=== PATIENT | female | born 1995 | race African-American/Black ===

== ENCOUNTER 2017-11-26 17:56 | Emergency (ER) | payer OTHER ==
[~2017-11-26] VITALS: Ht 172.7 cm; Wt 81.6 kg
[2017-11-26] MEDS ORDERED: NS IV 1000 ML 1,000 ML IV ONE (18:15)
[2017-11-26] MEDS ORDERED: ONDANSETRON 4 MG/2 ML (SDV) Z0FRAN IVP ONE (18:15)
[2017-11-26 18:25] LABS: BILIRUBIN,URINE NEGATIVE (NEGATIVE); CLARITY,URINE CLEAR; COLOR,URINE YELLOW; GLUCOSE, URINE (UA) NEGATIVE (NEGATIVE); KETONES,URINE 4+ (NEGATIVE); LEUKOCYTE ESTERASE ,URINE 1+ (NEGATIVE); NITRITE,URINE NEGATIVE (NEGATIVE); PH,URINE 6.5 (5-9); PROTEIN,URINE 2+ (NEGATIVE); UROBILINOGEN,URINE 4 MG/DL (NORMAL)
[2017-11-26 18:26] LABS: BASOPHILS % (AUTO) 0 % (0-10); EOSINOPHILS % (AUTO) 0 % (0-10); HEMATOCRIT 38 % (35-52); HEMOGLOBIN 12.5 G/DL (11.5-16.0); LYMPHOCYTES # (AUTO) 1.1 X 10^3 (1.0-4.0); LYMPHOCYTES % (AUTO) 10 % (12-44); MEAN CORPUSCULAR HEMOGLOBIN 29 PG (25-34); MEAN CORPUSCULAR HGB CONC 33 G/DL (32-36); MEAN CORPUSCULAR VOLUME 87 FL (80-99); MEAN PLATELET VOLUME 9.5 FL (7.4-10.4); MONOCYTES # (AUTO) 0.9 X 10^3 (0.0-1.0); MONOCYTES % (AUTO) 8 % (0-12); NEUTROPHILS # (AUTO) 8.7 X 10^3 (1.8-7.8); NEUTROPHILS % (AUTO) 82 % (42-75); PLATELET COUNT 255 10^3/uL (130-400); RED BLOOD COUNT 4.34 10^6/uL (4.35-5.85); RED CELL DISTRIBUTION WIDTH 13.5 % (10.0-14.5); WHITE BLOOD COUNT 10.7 10^3/uL (4.3-11.0)
--- NOTE | 2017-11-26 18:28 | ED GI ---
General Chief Complaint: Abdominal/GI Problems Stated Complaint: VOMITING/DIARRHEA/STOMACH AND HEAD PAIN Nursing Triage Note: c/o lower abd diarrhea and vomiting since last night. Sepsis Screen: No Definite Risk Source of Information: Patient Exam Limitations: No Limitations History of Present Illness Date Seen by Provider: Nov 26, 2017 Time Seen by Provider: 18:15 Initial Comments This 22-year-old young lady presents to the emergency room with complaints of nausea, vomiting, diarrhea, abdominal cramping, and fever that started around 03 :00. Her last intake of solid foods was at 20:00. She has had water and Sprite today with her last drink being around 17:00. She denies as her LMP was last week. She has not taken any Tylenol or ibuprofen. She is still febrile at present. Allergies and Home Medications Allergies Coded Allergies: No Known Drug Allergies (Unverified , 11/26/17) Home Medications Cephalexin 500 Mg Capsule, 500 MG PO BID Prescribed by: REMI LALA on 11/26/171944 Hyoscyamine Sulfate 0.125 Mg Tab.subl, 0.125 MG SL Q4H PRN for NAUSEA/VOMITING Prescribed by: REMI LALA on 11/26/171944 Ondansetron 4 Mg Tab.rapdis, 4 MG SL Q4H PRN for NAUSEA/VOMITING-1ST LINE Prescribed by: REMI LALA on 11/26/171944 Patient Home Medication List Home Medication List Reviewed: Yes Review of Systems Review of Systems Constitutional: see HPI EENTM: No Symptoms Reported Respiratory: No Symptoms Reported Cardiovascular: No Symptoms Reported Gastrointestinal: See HPI Genitourinary: No Symptoms Reported Musculoskeletal: no symptoms reported Skin: no symptoms reported Psychiatric/Neurological: No Symptoms Reported Endocrine: No Symptoms Reported Hematologic/Lymphatic: No Symptoms Reported Past Czueubz-Jszpdx-Krevlg Hx Past Med/Social Hx: Reviewed and Corrections made Patient Social History Alcohol Use: Denies Use Recreational Drug Use: No Smoking Status: Current Everyday Smoker Type Used: Cigarettes Recent Foreign Travel: No Contact w/Someone Who Travel: No Recent Infectious Disease Expo: No Recent Hopitalizations: No Physical Abuse: No Sexual Abuse: No Mistreated: No Fear: No Immunizations Up To Date PED Vaccines UTD: Yes Seasonal Allergies Seasonal Allergies: No Past Medical History Surgeries: Yes Orthopedic (anterior cruciate ligament repairs) Respiratory: No Cardiac: No Neurological: No : No Last Menstrual Period: Nov 19, 2017 Reproductive Disorders: No Genitourinary: No Gastrointestinal: No Musculoskeletal: No Endocrine: No HEENT: No Cancer: No Psychosocial: No Integumentary: No Physical Exam Vital Signs Vital Signs - First Documented 11/26/17 18:14 Temp 100.4 Pulse 110 Resp 16 B/P (MAP) 128/74 (92) Pulse Ox 98 Capillary Refill : Less Than 3 Seconds Height/Weight/BMI Height: 5'8.00" Weight: 180lbs. oz. 81.124931gt; BMI Method:Stated General Appearance: WD/WN, no apparent distress, other (somewhat ill-appearing) HEENT: PERRL/EOMI, normal ENT inspection, pharynx normal Neck: normal inspection Respiratory: lungs clear, normal breath sounds, no respiratory distress, no accessory muscle use Cardiovascular: regular rate, rhythm, no edema, no murmur Gastrointestinal: normal bowel sounds, soft; No distended; tenderness (mild generalized tenderness) Extremities: normal inspection, no pedal edema Neurologic/Psychiatric: payment processor II-XII nml as tested, no motor/sensory deficits, alert, normal mood/affect, oriented x 3 Skin: normal color, warm/dry Progress/Results/Core Measures Results/Orders Lab Results Laboratory Tests Test 11/26/17 17:58 11/26/17 18:00 11/26/17 18:10 Range/Units Lab Scanned Report Referred Lab Report [id number] Urine Color YELLOW Urine Clarity CLEAR Urine pH 6.5 5-9 Urine Specific [place] 1.015 L 1.016-1.022 Urine Protein 2+ H NEGATIVE Urine Glucose (UA) NEGATIVE NEGATIVE Urine Ketones 4+ H NEGATIVE Urine Nitrite NEGATIVE NEGATIVE Urine Bilirubin NEGATIVE NEGATIVE Urine Urobilinogen 4 H NORMAL MG/DL Urine Leukocyte Esterase 1+ H NEGATIVE Urine RBC (Auto) 1+ H NEGATIVE Urine RBC 5-10 H /HPF Urine WBC 5-10 H /HPF Urine Squamous Epithelial Cells 5-10 /HPF Urine Crystals NONE /LPF Urine Bacteria FEW H /HPF Urine Casts NONE /LPF Urine Mucus LARGE H /LPF Urine Culture Indicated YES White Blood Count 10.7 4.3-11.0 10^3/uL Red Blood Count 4.34 L 4.35-5.85 10^6/uL Hemoglobin 12.5 11.5-16.0 G/DL Hematocrit 38 35-52 % Mean Corpuscular Volume 87 80-99 FL Mean Corpuscular Hemoglobin 29 25-34 PG Mean Corpuscular Hemoglobin Concent 33 32-36 G/DL Red Cell Distribution Width 13.5 10.0-14.5 % Platelet Count 255 130-400 10^3/uL Mean Platelet Volume 9.5 7.4-10.4 FL Neutrophils (%) (Auto) 82 H 42-75 % Lymphocytes (%) (Auto) 10 L 12-44 % Monocytes (%) (Auto) 8 0-12 % Eosinophils (%) (Auto) 0 0-10 % Basophils (%) (Auto) 0 0-10 % Neutrophils # (Auto) 8.7 H 1.8-7.8 X 10^3 Lymphocytes # (Auto) 1.1 1.0-4.0 X 10^3 Monocytes # (Auto) 0.9 0.0-1.0 X 10^3 Eosinophils # (Auto) 0.0 0.0-0.3 10^3/uL Basophils # (Auto) 0.0 0.0-0.1 10^3/uL Sodium Level 136 135-145 MMOL/L Potassium Level 3.5 L 3.6-5.0 MMOL/L Chloride Level 103 98-107 MMOL/L Carbon Dioxide Level 20 L 21-32 MMOL/L Anion Gap 13 5-14 MMOL/L Blood Urea Nitrogen 13 7-18 MG/DL Creatinine 0.84 0.60-1.30 MG/DL Estimat Glomerular Filtration Rate > 60 BUN/Creatinine Ratio 15 Glucose Level 125 H 70-105 MG/DL Calcium Level 9.2 8.5-10.1 MG/DL Corrected Calcium 8.9 8.5-10.1 MG/DL Magnesium Level 2.1 1.8-2.4 MG/DL Total Bilirubin 0.7 0.1-1.0 MG/DL Aspartate Amino Transf (AST/SGOT) 15 5-34 U/L Alanine Aminotransferase (ALT/SGPT) 12 0-55 U/L Alkaline Phosphatase 58 40-136 U/L Total Protein 7.7 6.4-8.2 GM/DL Albumin 4.4 3.2-4.5 GM/DL Serum Test, Qualitative NEGATIVE NEGATIVE Micro Results Microbiology 11/26/17 Urine Culture - Final, Complete See Comments My Orders Orders - REMI CHAMORRO MD Ondansetron Injection (Zofran Injectio (11/26/17 18:15) Saline Lock/Iv-Start (11/26/17 18:15) Ns Iv 1000 Ml (Sodium Chloride 0.9%) (11/26/17 18:15) Cbc With Automated Diff (11/26/17 18:16) Comprehensive Metabolic Panel (11/26/17 18:16) Hcg,Qualitative Serum (11/26/17 18:16) Magnesium (11/26/17 18:16) Ua Culture If Indicated (11/26/17 18:16) Hyoscyamine Sl Tablet (Levsin Sl Tablet) (11/26/17 18:30) Urine Culture (11/26/17 18:00) Lactated Ringers (Lr 1000 Ml Iv Solution (11/26/17 18:50) Ceftriaxone For Iv Use (Rocephin For I (11/26/17 19:00) Medications Given in ED Vital Signs/I&O 11/26/17 11/26/17 18:14 19:58 Temp 100.4 98.3 Pulse 110 83 Resp 16 16 B/P (MAP) 128/74 (92) 122/81 (95) Pulse Ox 98 99 Blood Pressure Mean: 92 Urine -Bedside: Negative Progress Progress Note #1: Time: 18:28 Progress Note Patient was seen and examined. IV fluids, Zofran, and Levsin have been ordered. Labs are pending. Progress Note #2: Progress Note Patient had suggestion of significant hypovolemia by urinalysis. After the first liter of IV fluid a second liter (LR) was given. Patient still had some cramping after treatment of pain. Levsin was administered. UA was suggestive of urinary tract infection. A gram of Rocephin was given. Departure Impression Primary Impression: Nausea vomiting and diarrhea Additional Impressions: Generalized abdominal cramping Urinary tract infection Qualified Codes: N39.0 - Urinary tract infection, site not specified Disposition: 01 HOME, SELF-CARE Condition: Improved Departure-Patient Inst. Decision time for Depature: 19:38 Referrals: NO,LOCAL PHYSICIAN (PCP/Family) Primary Care Physician Patient Instructions: Acute Abdomen (Belly Pain), Adult (DC), Urinary Tract Infection, Adult (DC), Viral Gastroenteritis Add. Discharge Instructions: Drink only clear liquids through the remainder of the evening. Tomorrow start with a clear liquid breakfast and advance diet with small quantities of bland food as tolerated. Use your medications as prescribed to manage symptoms. You may use Tylenol (acetaminophen) up to 1000 mg every 6 hours as needed for discomfort or fever. Return to care if symptoms are worsening despite these measures. All discharge instructions reviewed with patient and/or family. Voiced understanding. Scripts Cephalexin (Keflex) 500 Mg Capsule 500 MG PO BID, #10 CAP Prov: REMI CHAMORRO MD 11/26/17 Hyoscyamine Sulfate (Levsin-Sl) 0.125 Mg Tab.subl 0.125 MG SL Q4H PRN for NAUSEA/VOMITING, #10 TAB Prov: REMI CHAMORRO MD 11/26/17 Ondansetron (Zofran Odt) 4 Mg Tab.rapdis 4 MG SL Q4H PRN for NAUSEA/VOMITING-1ST LINE, #10 TAB Prov: REMI CHAMORRO MD 11/26/17 REMI CHAMORRO MD Nov 26, 2017 18:28
[2017-11-26] MEDS ORDERED: HYOSCYAMINE 0.125 MG (LEVSIN) TAB SL ONE (18:30)
[2017-11-26 18:34] LABS: BACTERIA,URINE FEW /HPF
[2017-11-26 18:41] LABS: ALANINE AMINOTRANSFERASE 12 U/L (0-55); ALBUMIN 4.4 GM/DL (3.2-4.5); ALKALINE PHOSPHATASE 58 U/L (40-136); BILIRUBIN,TOTAL 0.7 MG/DL (0.1-1.0); BUN/CREATININE RATIO 15; CALCIUM 9.2 MG/DL (8.5-10.1); CARBON DIOXIDE 20 MMOL/L (21-32); CHLORIDE 103 MMOL/L (98-107); CREATININE SERUM 0.84 MG/DL (0.60-1.30); GFR ESTIMATED > 60; GLUCOSE 125 MG/DL (70-105); MAGNESIUM 2.1 MG/DL (1.8-2.4); POTASSIUM 3.5 MMOL/L (3.6-5.0); SODIUM 136 MMOL/L (135-145); TOTAL PROTEIN 7.7 GM/DL (6.4-8.2)
[2017-11-26] MEDS ORDERED: LACTATED RINGERS 1,000 ML IV ONE (18:50)
[2017-11-26] MEDS ORDERED: cefTRIAXone FOR IV USE 1,000 MG in NS (IVPB) 50 ML IV ONE (19:00)
[2017-11-26] MEDS ORDERED: CEPH-507 PO (19:45)
[2017-11-26] MEDS ORDERED: HYOS0.1283 SL (19:45)
[2017-11-26] MEDS ORDERED: ONDA4TAB8 SL (19:45)
[2017-11-26 19:58] VITALS: BP 122/81
== END 2017-11-26 19:58 | disposition home or self-care (01) ==
LOC: EDUNIT# 17:56 → ER 17:58
DX: N39.0 Urinary tract infection, site not specified (principal); R19.7 Diarrhea, unspecified; F17.210 Nicotine dependence, cigarettes, uncomplicated
CPT/HCPCS: 36415; 80053; 81000; 83735; 84703; 85025; 87088

== ENCOUNTER 2021-09-17 08:56 | Emergency (ER) | payer OTHER ==
[~2021-09-17] VITALS: Ht 175.2 cm; Wt 99.7 kg
[~2021-09-17 08:56] MED LIST: CEPH-507 PO; HYOS0.1283 SL; ONDA4TAB8 SL
--- NOTE | 2021-09-17 09:27 | ED Lower Extremity ---
General Chief Complaint: Lower Extremity Stated Complaint: LEFT ANKLE INJURY Nursing Triage Note: PT TO FT 1 BY WC WITH CC OF L ANKLE PAIN SINCE LAST PM. PT REPORTS WAS TAKING OUT TRASH LAST NIGHT AND ROLLED L ANKLE WHEN STEPPING OFF STAIRS. PT A&OX4 Source: patient Exam Limitations: no limitations History of Present Illness Date Seen by Provider: Sep 17, 2021 Time Seen by Provider: 09:21 Initial Comments This 26-year-old young lady presents to the emergency room with injury to the left ankle and foot after inverting her ankle stepping off her stairs last night while taking the trash out. She denies any other injury. She has been able to bear weight and ambulate but tries to use support with objects around her. Allergies and Home Medications Allergies Coded Allergies: No Known Drug Allergies (Unverified , 11/26/17) Patient Home Medication List Home Medication List Reviewed: Yes Cephalexin (Keflex) 500 Mg Capsule, 500 MG PO BID Prescribed by: REMI LALA on 11/26/171944 Hyoscyamine Sulfate (Levsin-Sl) 0.125 Mg Tab.subl, 0.125 MG SL Q4H PRN for NAUSEA/VOMITING Prescribed by: REMI LALA on 11/26/171944 Ondansetron (Zofran Odt) 4 Mg Tab.rapdis, 4 MG SL Q4H PRN for NAUSEA/VOMITING- 1ST LINE Prescribed by: REMI LALA on 11/26/171944 Review of Systems Constitutional: no symptoms reported EENTM: no symptoms reported : No Musculoskeletal: see HPI Skin: no symptoms reported Psychiatric/Neurological: No Symptoms Reported Past Jtqztow-Htrpjs-Grcxem Hx Patient Social History Tobacco Use?: No Use of E-Cig and/or Vaping dev: Yes E-Cig or Vaping type used: Nicotine Use of E-Cig and/or Vaping Kyrie: Current Everyday User Substance use?: Yes Substance type: Marijuana Substance frequency: Couple times a week Alcohol Use?: No Pt feels they are or have been: No Immunizations Up To Date PED Vaccines UTD: Yes Seasonal Allergies Seasonal Allergies: No Past Medical History Surgery/Hospitalization HX: KNEE SURGERY Surgeries: Yes Orthopedic Respiratory: No Cardiac: No Neurological: No Reproductive Disorders: No Genitourinary: No Gastrointestinal: No Musculoskeletal: No Endocrine: No HEENT: No Cancer: No Psychosocial: No Integumentary: No Physical Exam Vital Signs Vital Signs - First Documented 09/17/21 09:05 Temp 37.7 Pulse 78 Resp 14 B/P (MAP) 113/72 (86) Pulse Ox 99 O2 Delivery Room Air Capillary Refill : Less Than 3 Seconds Height, Weight, BMI Height: 5'8.00" Weight: 180lbs. oz. 81.878077we; 32.00 BMI Method:Stated General Appearance: WD/WN, no apparent distress HEENT: normal ENT inspection Legs: left leg non-tender, left leg normal inspection, left leg normal range of motion Knees: left knee non-tender, left knee normal inspection, left knee normal range of motion Ankles: left ankle bone tenderness (Moderate on the lateral malleolus and mild on the medial malleolus), left ankle limited range of motion (Limited by pain), left ankle swelling (Lateral malleolus) Feet: left foot normal range of motion, left foot bone tenderness (Proximal dorsal foot), left foot swelling Neurologic/Psychiatric: no motor/sensory deficits, alert, normal mood/affect, oriented x 3 Skin: normal color, warm/dry Progress/Results/Core Measures Results/Orders My Orders Orders - REMI CHAMORRO MD Ankle, Left, 3 Views (09/17/21 09:20) Foot, Left, 3 Views (09/17/21 09:24) Hydrocodone/Apap 5/325 Tablet (Lortab 5 (09/17/21 09:30) Medications Given in ED Vital Signs/I&O 09/17/21 09/17/21 09:05 10:09 Temp 37.7 37.7 Pulse 78 78 Resp 14 14 B/P (MAP) 113/72 (86) 113/72 Pulse Ox 99 99 O2 Delivery Room Air Room Air Blood Pressure Mean: 86 Progress Progress Note : Progress Note X-rays were negative for fracture or dislocation. Patient declined crutches. Arun wrap provided and discharge instructions reviewed. See discharge instructions for further discussion. Diagnostic Imaging Diagonstic Imaging: Xray Plain Films/CT/US/NM/MRI: other (Left foot and ankle) Comments X-rays of the left foot and ankle viewed by me and report reviewed. See reports below: NAME: FREEDOM GONZALEZ [facility] REC#: [id number] PT STATUS: REG ER : 1995 PHYSICIAN: REMI CHAMORRO MD ADMIT DATE: 09/17/21/ER Draft Date of Exam:09/17/21 FOOT, LEFT, 3 VIEWS EXAMINATION: Left foot 3 views HISTORY: foot pain COMPARISON: None available. FINDINGS: Alignment is normal. No fracture is seen. Joint spaces are normal. IMPRESSION: 1. No fracture. Dictated on workstation # [id number] Dict: 09/17/21 0938 Trans: 09/17/[address] [facility] [id number] Interpreted by: KULDIP JAMESON MD NAME: FREEDOM GONZALEZ [facility] REC#: [id number] PT STATUS: REG ER : 1995 PHYSICIAN: REMI CHAMORRO MD ADMIT DATE: 09/17/21/ER Signed Date of Exam:09/17/21 ANKLE, LEFT, 3 VIEWS CLINICAL HISTORY: Left ankle pain. Stepping injury. COMPARISON: None. TECHNIQUE: 3 views of the left ankle. FINDINGS: There is no acute fracture or dislocation of the left ankle. Alignment is anatomic. The imaged joint spaces are preserved. No focal osseous lesions. IMPRESSION: 1. No acute fracture or dislocation is seen in the left ankle. Dictated by: Dictated on workstation # [id number] Dict: 09/17/2137 Trans: 09/17/[address] [facility] [id number] Interpreted by: HEYDI KEBEDE DO Electronically signed by: HEYDI KEBEDE DO 09/17/21 0947 Departure Impression Primary Impression: Left ankle sprain Qualified Codes: S93.402A - Sprain of unspecified ligament of left ankle, initial encounter Additional Impression: Sprain of left foot Qualified Codes: S93.602A - Unspecified sprain of left foot, initial encounter Disposition: 01 HOME, SELF-CARE Condition: Stable Departure-Patient Inst. Decision time for Depature: 09:58 Referrals: NO,LOCAL PHYSICIAN (PCP/Family) Primary Care Physician Patient Instructions: Ankle Sprain ED, Foot Sprain ED Add. Discharge Instructions: You have an ankle sprain and possibly a foot sprain. No broken bones were identified on the x-rays. You may reduce pain and swelling by using compressive wrapping such as Arun bandage, elevation, and 20-minute intervals of icing. Gradually increase level of activity as pain allows. You are encouraged to use a firm Velcro or lace up brace whenever active for about the next 6 weeks to prevent repeat injury while you are healing. You may take ibuprofen up to 600 mg every 6 hours and/or Tylenol up to 1000 mg every 6 hours as needed for pain control. Return to care if you have worsening symptoms despite following these instructions or if you are not progressively healing as expected. All discharge instructions reviewed with patient and/or family. Voiced understanding. Work/School Note: Work Release Form Date Seen in the Emergency Department: Sep 17, 2021 Return to Work: Sep 18, 2021 Other Restrictions Listed Below: May need to rest and elevate foot occasionally for a couple weeks. Restrictions: Gradually increase activity as pain allows. REMI CHAMORRO MD Sep 17, 2021 09:27
[2021-09-17] MEDS ORDERED: HYDROcodone/APAP 5 MG/325 MG (LORTAB) TAB PO ONE (09:30)
--- NOTE | 2021-09-17 09:43 | Diagnostic Imaging Report ---
EXAMINATION: Left foot 3 views HISTORY: foot pain COMPARISON: None available. FINDINGS: Alignment is normal. No fracture is seen. Joint spaces are normal. IMPRESSION: 1. No fracture. Dictated by: Dictated on workstation # [id number]
--- NOTE | 2021-09-17 09:43 | Diagnostic Imaging Report ---
CLINICAL HISTORY: Left ankle pain. Stepping injury. COMPARISON: None. TECHNIQUE: 3 views of the left ankle. FINDINGS: There is no acute fracture or dislocation of the left ankle. Alignment is anatomic. The imaged joint spaces are preserved. No focal osseous lesions. IMPRESSION: 1. No acute fracture or dislocation is seen in the left ankle. Dictated by: Dictated on workstation # [id number]
[2021-09-17 10:09] VITALS: BP 113/72
== END 2021-09-17 10:09 | disposition home or self-care (01) ==
LOC: EDUNIT# 08:56 → ER 08:59
DX: S93.402A Sprain of unspecified ligament of left ankle, initial encounter (principal); S93.602A Unspecified sprain of left foot, initial encounter; F17.290 Nicotine dependence, other tobacco product, uncomplicated; Z28.310 Unvaccinated for COVID-19; X50.1XXA Overexertion from prolonged static or awkward postures, initial encounter
CPT/HCPCS: 73610; 73630

== ENCOUNTER 2021-11-18 10:46 | Emergency (ER) | payer OTHER ==
[~2021-11-18] VITALS: Ht 170.2 cm; Wt 90.7 kg
[2021-11-18 10:50] VITALS: BP 134/72
--- NOTE | 2021-11-18 11:02 | ED Upper Extremity ---
General Chief Complaint: Upper Extremity Stated Complaint: RIGHT HAND PAIN Source: patient Exam Limitations: no limitations History of Present Illness Date Seen by Provider: Nov 18, 2021 Time Seen by Provider: 11:02 Initial Comments This is a 26-year-old female who presented to the ER via POV with complaints of right hand pain. States that she punched a wall last night and is now having tenderness at her right fourth and fifth knuckle region. Has not applied ice or taken any vffy-smb-eiskpsx medications. Pain is manageable at this time. No numbness or tingling in her fingers. No other injuries reported. Allergies and Home Medications Allergies Coded Allergies: No Known Drug Allergies (Unverified , 11/26/17) Patient Home Medication List Home Medication List Reviewed: Yes Cephalexin (Keflex) 500 Mg Capsule, 500 MG PO BID Prescribed by: REMI LALA on 11/26/171944 Hyoscyamine Sulfate (Levsin-Sl) 0.125 Mg Tab.subl, 0.125 MG SL Q4H PRN for NAUSEA/VOMITING Prescribed by: REMI LALA on 11/26/171944 Ondansetron (Zofran Odt) 4 Mg Tab.rapdis, 4 MG SL Q4H PRN for NAUSEA/VOMITING- 1ST LINE Prescribed by: REMI LALA on 11/26/171944 Review of Systems Constitutional: see HPI Past Ucudxdk-Bakfzm-Azkzwt Hx Patient Social History Tobacco Use?: No Smoking Status: Never a Smoker Smokeless Tobacco Frequency: Never a User Use of E-Cig and/or Vaping dev: No Use of E-Cig and/or Vaping Kyrie: Never a User Substance use?: Yes Substance type: Marijuana Substance frequency: Daily Alcohol Use?: Yes Alcohol Frequency: Couple times a week Pt feels they are or have been: No Immunizations Up To Date PED Vaccines UTD: Yes Seasonal Allergies Seasonal Allergies: No Past Medical History Surgery/Hospitalization HX: KNEE SURGERY Surgeries: Yes Orthopedic Respiratory: No Cardiac: No Neurological: No Reproductive Disorders: No Genitourinary: No Gastrointestinal: No Musculoskeletal: No Endocrine: No HEENT: No Cancer: No Psychosocial: No Integumentary: No Physical Exam Vital Signs Vital Signs - First Documented 11/18/21 11/18/21 10:50 11:28 Temp 36.5 Pulse 77 Resp 15 B/P (MAP) 134/72 (92) Pulse Ox 99 O2 Delivery Room Air Capillary Refill : Height, Weight, BMI Height: 5'8.00" Weight: 180lbs. oz. 81.548578ka; 32.00 BMI Method:Stated General Appearance: WD/WN, no apparent distress HEENT: PERRL/EOMI, normal ENT inspection, pharynx normal Neck: full range of motion, normal inspection Cardiovascular: normal peripheral pulses Respiratory: no respiratory distress, no accessory muscle use Shoulder: normal inspection, no evidence of injury, normal ROM Elbow/Forearm: normal inspection, no evidence of injury, normal ROM Wrist: Yes normal inspection, Yes non-tender, Yes no evidence of injury, Yes normal ROM Hand: Right (4th and 5th metacarpal tenderness, slight soft tissue swelling. ) Neurologic/Tendon: normal sensation, normal motor functions, normal tendon functions Neurologic/Psychiatric: no motor/sensory deficits, alert, normal mood/affect, oriented x 3 Skin: normal color, warm/dry Progress/Results/Core Measures Results/Orders My Orders Orders - JOEY EDWARDS APRN Hand, Right, 3 Views (11/18/21 11:01) Vital Signs/I&O 11/18/21 11/18/21 10:50 11:28 Temp 36.5 36.6 Pulse 77 70 Resp 15 16 B/P (MAP) 134/72 (92) Pulse Ox 99 O2 Delivery Room Air Room Air Diagnostic Imaging Diagonstic Imaging: Xray Comments [facility] [place] NAME: [facility] REC#: [id number] PT STATUS: DEP ER : 1995 PHYSICIAN: JOEY EDWARDS APRN ADMIT DATE: 11/18/21/ER Draft Date of Exam:11/18/21 HAND, RIGHT, 3 VIEWS INDICATION: Punched wall, 4-5 metacarpal tenderness TECHNIQUE: Three views of the right hand. CORRELATION STUDY: None FINDINGS: There is normal alignment and appearance of the osseous structures of the hand. The joint spaces are maintained. There is no acute fracture. Mild soft tissue swelling along the ulnar aspect of the hand. IMPRESSION: 1. Negative for acute bony abnormality of the hand. Dictated on workstation # [id number] Dict: 11/18/21 1135 Trans: 11/18/21 1135 DO [id number] Interpreted by: RUPA CORMIER DO Electronically signed by: Departure Impression Primary Impression: Contusion of hand Disposition: HOME, SELF-CARE Condition: Stable Departure-Patient Inst. Decision time for Depature: 11:25 Referrals: NO,LOCAL PHYSICIAN (PCP/Family) Primary Care Physician Patient Instructions: Contusion (DC) Add. Discharge Instructions: Plan: 1. May use ice 20 minutes at a time for swelling, most swelling will occur within 48 hours after initial injury. 2. May take Tylenol ibuprofen as needed for pain per package. 3. Follow-up with your primary care provider if your symptoms persist or worsen. 4. You can return for any new, concerning, worsening symptoms. All discharge instructions reviewed with patient and/or family. Voiced understanding. JOEY EDWARDS [employer] H AGENT Nov 18, 2021 11:02
--- NOTE | 2021-11-18 11:36 | Diagnostic Imaging Report ---
INDICATION: Punched wall, 4-5 metacarpal tenderness TECHNIQUE: Three views of the right hand. CORRELATION STUDY: None FINDINGS: There is normal alignment and appearance of the osseous structures of the hand. The joint spaces are maintained. There is no acute fracture. Mild soft tissue swelling along the ulnar aspect of the hand. IMPRESSION: 1. Negative for acute bony abnormality of the hand. Dictated by: Dictated on workstation # [id number]
== END 2021-11-18 11:28 | disposition home or self-care (01) ==
LOC: EDUNIT# 10:46 → ER 10:48
DX: S60.221A Contusion of right hand, initial encounter (principal); Z28.310 Unvaccinated for COVID-19; W22.01XA Walked into wall, initial encounter
CPT/HCPCS: 73130

== ENCOUNTER 2022-02-03 17:19 | Emergency (ER) | payer OTHER ==
[~2022-02-03] VITALS: Ht 170 cm; Wt 90.7 kg
[2022-02-03 17:28] VITALS: BP 127/78
--- NOTE | 2022-02-03 18:33 | ED Upper Extremity ---
General Chief Complaint: Upper Extremity Stated Complaint: RIGHT PINKY FINGER PAIN Nursing Triage Note: PUNCHED A WALL X2 MONTHS AGO AND CONTINUES TO HAVE PAIN IN RIGHT 5TH FINGER. WAS SEEN AT [facility] YESTERDAY AND X-RAY WAS NEG. History of Present Illness Date Seen by Provider: Feb 03, 2022 Time Seen by Provider: 18:15 Initial Comments 26 year old female presents for right 5th finger pain at PIP that radiates to wrist at times. She reports punching wall 2 months ago and pain since then. She had xray at [facility] yesterday, was told no fracture found. Reports to ED today, as pain is still present. She is able to use the hand and no restrictions, other than pain. She has not taken otc pain medications. Severity: mild Pain/Injury Location: right 5th finger Method of Injury: direct blow Allergies and Home Medications Allergies Coded Allergies: No Known Drug Allergies (Unverified , 11/26/17) Patient Home Medication List Home Medication List Reviewed: Yes Discontinued Medications Cephalexin (Keflex) 500 Mg Capsule, 500 MG PO BID Discontinued Reason: No Longer Taking Prescribed by: REMI LALA on 11/26/171944 Last Action: Discontinued Hyoscyamine Sulfate (Levsin-Sl) 0.125 Mg Tab.subl, 0.125 MG SL Q4H PRN for NAUSEA/VOMITING Discontinued Reason: No Longer Taking Prescribed by: REMI LALA on 11/26/171944 Last Action: Discontinued Ondansetron (Zofran Odt) 4 Mg Tab.rapdis, 4 MG SL Q4H PRN for NAUSEA/VOMITING- 1ST LINE Discontinued Reason: No Longer Taking Prescribed by: REMI LALA on 11/26/171944 Last Action: Discontinued Review of Systems Constitutional: no symptoms reported Musculoskeletal: see HPI, joint pain (5th finger, PIP right hand) All Other Systems Reviewed Negative Unless Noted: Yes Past Tjsljbq-Bxuhew-Hhccvk Hx Patient Social History Tobacco Use?: No Substance use?: Yes Substance type: Marijuana Alcohol Use?: Yes Alcohol Frequency: Once in a while Immunizations Up To Date PED Vaccines UTD: Yes Seasonal Allergies Seasonal Allergies: No Past Medical History Surgery/Hospitalization HX: KNEE SURGERY Surgeries: Yes Orthopedic Respiratory: No Cardiac: No Neurological: No Expected Date of Delivery: Jan 24, 2022 Reproductive Disorders: No Genitourinary: No Gastrointestinal: No Musculoskeletal: No Endocrine: No HEENT: No Cancer: No Psychosocial: No Integumentary: No Family Medical History Reviewed Nursing Family Hx Physical Exam Vital Signs Vital Signs - First Documented 02/03/22 17:28 Temp 36.8 Pulse 85 Resp 16 B/P (MAP) 127/78 (94) Pulse Ox 99 O2 Delivery Room Air Capillary Refill : Less Than 3 Seconds Height, Weight, BMI Height: 5'8.00" Weight: 180lbs. oz. [id number]; 31.00 BMI Method:Stated General Appearance: WD/WN, no apparent distress Cardiovascular: normal peripheral pulses, regular rate, rhythm Respiratory: chest non-tender, lungs clear, normal breath sounds Hand: normal inspection, no evidence of injury, normal ROM, Right, bone tenderness (prox phalynx and PIP 5th finger right hand) Neurologic/Tendon: normal sensation, normal motor functions, normal tendon fu nctions Neurologic/Psychiatric: no motor/sensory deficits, alert, normal mood/affect, oriented x 3 Skin: normal color, warm/dry No swelling, erythema or deformity noted to 5th finger right hand. Resisted Flex/Ext V/V at MCP, PIP, DIP. Progress/Results/Core Measures Results/Orders Vital Signs/I&O 02/03/22 17:28 Temp 36.8 Pulse 85 Resp 16 B/P (MAP) 127/78 (94) Pulse Ox 99 O2 Delivery Room Air Blood Pressure Mean: 94 Progress Progress Note : Time: 18:15 Progress Note patient assessed. Discussed repeating x-ray, but patient declined since it was negative yesterday. D/C instructions and return precautions reviewed. Departure Impression Primary Impression: Finger pain, right Disposition: 01 HOME, SELF-CARE Condition: Improved Departure-Patient Inst. Decision time for Depature: 18:30 Referrals: [facility] (PCP/Family) Primary Care Physician Patient Instructions: Common Finger Injuries (DC) Add. Discharge Instructions: Alternate Tylenol 650 mg and ibuprofen 600 mg every 4 hours. Follow up at [facility] walk in, ask for referral to Ender Glaser [facility]ER[facility] ADMINISTRATOR. Alternate head and ice to right 5th finger. Follow up in Emergency Dept for new, urgent health care needs. All discharge instructions reviewed with patient and/or family. Voiced mesha ojeda. PHILLIP ALICEA Feb 03, 2022 18:33
== END 2022-02-03 18:36 | disposition home or self-care (01) ==
LOC: EDUNIT# 17:19 → ER 17:20
DX: M79.644 Pain in right finger(s) (principal); Z28.310 Unvaccinated for COVID-19; W22.09XA Striking against other stationary object, initial encounter
CPT/HCPCS: 99281

== ENCOUNTER 2022-02-14 05:28 | Outpatient (CLI) | payer OTHER ==
[~2022-02-14] VITALS: Ht 170.2 cm; Wt 95.8 kg
== END 2022-02-14 15:46 | disposition home or self-care (01) ==
LOC: PREOP 05:28
PROVIDERS: ATTEND Obstetrics & Gynecology
DX: Z01.818 Encounter for other preprocedural examination (principal)

== ENCOUNTER 2022-02-24 07:37 | Day surgery (SDC) | payer OTHER ==
[2022-02-24] VITALS (10 sets, daily range): BP systolic 99–133; BP diastolic 55–86
[~2022-02-24] VITALS: Ht 170.2 cm; Wt 91.0 kg
[2022-02-24] MEDS ORDERED: LACTATED RINGERS 1,000 ML IV PRN (07:45)
[2022-02-24 08:38] LABS: BASOPHILS % (AUTO) 0 % (0-10); EOSINOPHILS # (AUTO) 0.1 10^3/uL (0.0-0.3); EOSINOPHILS % (AUTO) 1 % (0-10); HEMATOCRIT 35 % (35-52); HEMOGLOBIN 11.6 g/dL (11.5-16.0); LYMPHOCYTES # (AUTO) 1.9 10^3/uL (1.0-4.0); LYMPHOCYTES % (AUTO) 24 % (12-44); MEAN CORPUSCULAR HEMOGLOBIN 30 pg (25-34); MEAN CORPUSCULAR HGB CONC 34 g/dL (32-36); MEAN CORPUSCULAR VOLUME 88 fL (80-99); MEAN PLATELET VOLUME 9.2 fL (9.0-12.2); MONOCYTES # (AUTO) 0.6 10^3/uL (0.0-1.0); MONOCYTES % (AUTO) 8 % (0-12); NEUTROPHILS # (AUTO) 5.1 10^3/uL (1.8-7.8); NEUTROPHILS % (AUTO) 66 % (42-75); PLATELET COUNT 248 10^3/uL (130-400); WHITE BLOOD COUNT 7.7 10^3/uL (4.3-11.0)
[2022-02-24] MEDS ORDERED: BUP/EPI 0.25% 1:200,000 (MARCAINE) 30 ML VIAL ONE (10:15)
--- NOTE | 2022-02-24 10:26 | Progress Note-Pre Operative ---
Pre-Operative Progress Note Date of Available H&P: Feb 24, 2022 Date H&P Reviewed: Feb 24, 2022 Time H&P Reviewed: 10:15 History & Physical: H&P Reviewed, No changes noted Pre-Operative Diagnosis: Labial cyst REGULO DILLON DO Feb 24, 2022 10:26
[2022-02-24] MEDS ORDERED: D5 LR IV SOLUTION 1,000 ML IV SCH (10:30)
[2022-02-24] MEDS ORDERED: ONDANSETRON 4 MG/2 ML (SDV) Z0FRAN IVP PRN ×2 (10:30→11:15)
[2022-02-24] MEDS ORDERED: KETOROLAC 30 MG/ML VIAL IVP ONE (10:30)
--- NOTE | 2022-02-24 10:30 | Discharge Inst-Women's Service ---
Discharge Inst-Women's Serv Depart Medication/Instructions New, Converted or Re-Newed RX: Transmitted to Pharmacy Problems Reviewed?: Yes Consults/Follow Up Additional Follow Up: Yes Orders/Referrals dr. dillon/christian in 2 weeks Activity Activity: Activity as Tolerated Driving Instructions: You May Drive NO SMOKING: NO SMOKING Nothing Inside Vagina: No Douching, No [place], No Tampons Diet Discharge Diet: No Restrictions Symptoms to Report to : Bleeding Excessive, Pain Increased, Fever Over 101 Degrees F, Questions/Concerns For Any Problems or Questions: Contact Your Physician REGULO DILLON DO Feb 24, 2022 10:30
[2022-02-24] MEDS ORDERED: proPOfol 200 MG/20 ML (DIPRIVAN) VIAL IV ONE ×2 (10:31→10:46)
[2022-02-24] MEDS ORDERED: MIDAZOLAM 2 MG/2 ML (VERSED) VIAL ONE (10:31)
[2022-02-24] MEDS ORDERED: fentaNYL INJ 100 MCG/2 ML AMP ONE (10:31)
[2022-02-24] MEDS ORDERED: LIDOCAINE PF 2% 5 ML (XYLOCAINE) VIAL ONE (10:31)
[2022-02-24] MEDS ORDERED: ONDANSETRON 4 MG/2 ML (SDV) Z0FRAN ONE (10:31)
[2022-02-24] MEDS: BUP/EPI 0.25% 1:200,000 (MARCAINE) 30 ML VIAL INJ ONE ×2 (10:47→10:55)
[2022-02-24] MEDS ORDERED: SEVOFLURANE (ULTANE) 15 ML INHAL SOLN ONE (10:52)
[2022-02-24] MEDS ORDERED: BACITRACIN OINTMENT 28 GM TUBE ONE (10:55)
[2022-02-24] MEDS ORDERED: BACITRACIN OINTMENT 28 GM TUBE TOP ONE (11:14)
[2022-02-24] MEDS ORDERED: morphine INJ 10 MG/ML 1ML (SYR OR VIAL) IVP ONE (11:15)
--- NOTE | 2022-02-24 13:28 | Anesthesia-General Post-Op ---
General Patient Condition Mental Status/LOC: Same as Preop Cardiovascular: Satisfactory Nausea/Vomiting: Absent Respiratory: Satisfactory Pain: Controlled Complications: Absent Post Op Complications Complications None Follow Up Care/Instructions Patient Instructions None needed. Anesthesia/Patient Condition Patient Condition Patient is doing well in SDC and ready for discharge to home. She has no complaints, stable vital signs, no apparent adverse anesthesia problems. No complications reported per nursing. ELO JERNIGAN DO Feb 24, 2022 13:28
--- NOTE | 2022-02-24 19:05 | OPERATIVE REPORT ---
DATE OF SERVICE: 02/24/2022 PREOPERATIVE DIAGNOSIS: A 27-year-old female, with superior labial vulvar cyst. POSTOPERATIVE DIAGNOSIS: A 27-year-old female, with superior labial vulvar cyst. PROCEDURE: Excision of labial cyst. SURGEON: Regulo Dillon DO. ANESTHESIA: LMA general. ESTIMATED BLOOD LOSS: Minimal. SPECIMEN SENT: Labial cyst. INDICATIONS FOR PROCEDURE: This 27-year-old female is a patient, who sought care in my office. After multiple trials of trying to alleviate the cyst, it keeps coming back. Despite her expressing fluid from it and opened it up with a needle and "stabbing it" at home, it keeps coming back and causing her issues. She keeps cutting it with shaving and personal maintenance at home. I discussed with the patient excisional biopsy of this area, we could do this in the office; however, due to concerns of discomfort, we decided to do this in the operating room. Risks of the procedure were discussed with the patient in detail and after all of her questions were answered, consent was obtained. The patient was taken to the operating room. OPERATIVE REPORT IN DETAIL: Once in the operating room, anesthesia was administered and found to be adequate. She was placed in dorsal lithotomy position, prepped and draped in a sterile fashion. A timeout was performed. This area was prepped using Betadine solution. The skin of the underlying surrounding cutaneous area was infiltrated using 2% lidocaine with epinephrine. I then make an elliptical incision around the cyst and slowly dissected the cyst wall off the underlying subcutaneous tissue, leaving a small 1.5 to 2 cm defect. This defect and dissection margins are made hemostatic using Bovie cautery. I then reapproximated the defect with elliptical incision using 3-0 Vicryl suture in interrupted fashion, after which there is no active bleeding noted from the defect as well. It was covered with bacitracin ointment. Lap and sponge counts were correct at the end of the procedure. Instrument counts were correct as well. The patient tolerated the procedure well and was taken to recovery in stable condition. Job ID: [id number] DocumentID: [id number] Dictated Date: 02/24/2022 11:14:10 Wad Impregnator Date: 02/24/2022 19:03:00 Dictated By: REGULO DILLON DO
== END 2022-02-24 13:30 | disposition home or self-care (01) ==
LOC: SDC 07:37
PROVIDERS: ATTEND Obstetrics & Gynecology
DX: N90.7 Vulvar cyst (principal); F17.210 Nicotine dependence, cigarettes, uncomplicated
CPT/HCPCS: 36415; 84703; 85025; 86850; 86900; 86901; 87081

== ENCOUNTER 2022-04-08 02:58 | Emergency (ER) | payer OTHER ==
[~2022-04-08] VITALS: Ht 170 cm; Wt 86.2 kg
--- NOTE | 2022-04-08 03:27 | ED Abdominal Pain ---
General Chief Complaint: Abdominal/GI Problems Stated Complaint: VOMITING/DIARRHEA Source of Information: Patient Exam Limitations: No Limitations History of Present Illness Date Seen by Provider: Apr 08, 2022 Time Seen by Provider: 03:27 Initial Comments Patient is a 27-year-old female who presents to the emergency department with a chief complaint of nausea, vomiting and diarrhea since 9 PM. She also complains of severe abdominal cramping. She has never had symptoms like this before. She states she had [employer] for breakfast yesterday morning, a slice of pizza for lunch and then some chicken, a few bites from [employer] in the evening. She states the nausea vomiting and diarrhea started shortly after the chicken. Nobody else sick in the home. She denies fevers or chills. No blood in her vomit or blood in her stool. She denies any prior abdominal surgeries. Is not sexually active. No burning with urination or abnormal vaginal discharge. Not currently on any medications. She states she feels lightheaded and dizzy with standing. Sitting up makes her abdomen hurt worse laying flat makes it feel better. All other review of systems reviewed and negative except as stated. Timing/Duration: 4-6 Hours Severity/Quality: Moderate, Cramping Location: Generalized Abdomen Radiation: No Radiation Activities at Onset: None Modifying Factors: Improves With Lying down Associated Symptoms: Nausea/Vomiting, Weakness, Other (Dizzy) Allergies and Home Medications Allergies Coded Allergies: No Known Drug Allergies (Unverified , 02/14/22) Patient Home Medication List Home Medication List Reviewed: Yes No Active Prescriptions or Reported Meds Review of Systems Review of Systems Constitutional: see HPI EENTM: No Symptoms Reported Respiratory: No Symptoms Reported Cardiovascular: No Symptoms Reported Gastrointestinal: Abdominal Pain, Diarrhea, Nausea, Vomiting Genitourinary: No Symptoms Reported Musculoskeletal: no symptoms reported Skin: no symptoms reported Psychiatric/Neurological: Weakness Past Gsygpes-Yiobbp-Srpeux Hx Patient Social History Tobacco Use?: Yes Substance use?: No Alcohol Use?: Yes Alcohol Frequency: Once in a while Pt feels they are or have been: No Immunizations Up To Date Tetanus Booster (TDap): Unknown PED Vaccines UTD: Yes First/Initial COVID19 Vaccinat: NA Seasonal Allergies Seasonal Allergies: Yes Past Medical History Surgery/Hospitalization HX: KNEE SURGERY X2 Surgeries: Yes (RECONSTRUCTION ACL BILATERAL) Orthopedic Respiratory: No Cardiac: No Neurological: No Reproductive Disorders: No Genitourinary: No Gastrointestinal: No Musculoskeletal: No Endocrine: No HEENT: No Cancer: No Psychosocial: Yes Anxiety, PTSD, Depression Integumentary: No Blood Disorders: No Physical Exam Vital Signs Vital Signs - First Documented 04/08/22 03:18 Temp 37.1 Pulse 123 Resp 16 B/P (MAP) 115/76 (89) Pulse Ox 100 O2 Delivery Room Air Capillary Refill : Height/Weight/BMI Height: 5'8.00" Weight: 180lbs. oz. [id number]; 31.41 BMI Method:Stated General Appearance: WD/WN, no apparent distress HEENT: PERRL/EOMI, other (Lips appear dry) Neck: normal inspection Respiratory: lungs clear, normal breath sounds, no respiratory distress, no accessory muscle use Cardiovascular: regular rate, rhythm, tachycardia (120) Gastrointestinal: soft, abnormal bowel sounds (Hypoactive), tenderness (Diffuse mild tenderness) Extremities: normal range of motion, non-tender, normal inspection, no pedal edema Neurologic/Psychiatric: alert, normal mood/affect, oriented x 3 Skin: normal color, warm/dry Procedures/Interventions Volume Anesthetic (ccs): 4 Wound Location: Scalp Wound Explored: foreign body removed Irrigated w/ Saline (ccs): 50 Progress/Results/Core Measures Results/Orders Lab Results Laboratory Tests Test 04/08/22 03:38 Range/Units White Blood Count 14.9 H 4.3-11.0 10^3/uL Red Blood Count 4.40 3.80-5.11 10^6/uL Hemoglobin 13.2 11.5-16.0 g/dL Hematocrit 39 35-52 % Mean Corpuscular Volume 88 80-99 fL Mean Corpuscular Hemoglobin 30 25-34 pg Mean Corpuscular Hemoglobin Concent 34 32-36 g/dL Red Cell Distribution Width 13.5 10.0-14.5 % Platelet Count 292 130-400 10^3/uL Mean Platelet Volume 9.1 9.0-12.2 fL Immature Granulocyte % (Auto) 0 % Neutrophils (%) (Auto) 88 H 42-75 % Lymphocytes (%) (Auto) 5 L 12-44 % Monocytes (%) (Auto) 5 0-12 % Eosinophils (%) (Auto) 1 0-10 % Basophils (%) (Auto) 0 0-10 % Neutrophils # (Auto) 13.2 H 1.8-7.8 10^3/uL Lymphocytes # (Auto) 0.8 L 1.0-4.0 10^3/uL Monocytes # (Auto) 0.8 0.0-1.0 10^3/uL Eosinophils # (Auto) 0.1 0.0-0.3 10^3/uL Basophils # (Auto) 0.0 0.0-0.1 10^3/uL Immature Granulocyte # (Auto) 0.0 0.0-0.1 10^3/uL Neutrophils % (Manual) 89 % Lymphocytes % (Manual) 6 % Monocytes % (Manual) 4 % Eosinophils % (Manual) 1 % Blood Morphology Comment NORMAL Sodium Level 143 135-145 MMOL/L Potassium Level 4.0 3.6-5.0 MMOL/L Chloride Level 108 H 98-107 MMOL/L Carbon Dioxide Level 24 21-32 MMOL/L Anion Gap 11 5-14 MMOL/L Blood Urea Nitrogen 10 7-18 MG/DL Creatinine 0.83 0.60-1.30 MG/DL Estimat Glomerular Filtration Rate 100 BUN/Creatinine Ratio 12 Glucose Level 107 H 70-105 MG/DL Calcium Level 9.1 8.5-10.1 MG/DL Corrected Calcium 8.8 8.5-10.1 MG/DL Total Bilirubin 0.6 0.1-1.0 MG/DL Aspartate Amino Transf (AST/SGOT) 13 5-34 U/L Alanine Aminotransferase (ALT/SGPT) 11 0-55 U/L Alkaline Phosphatase 62 40-136 U/L Total Protein 7.5 6.4-8.2 GM/DL Albumin 4.4 3.2-4.5 GM/DL My Orders Orders - CHA GOODE MD Cbc With Automated Diff (04/08/22 03:32) Comprehensive Metabolic Panel (04/08/22 03:32) Ed Iv/Invasive Line Start (04/08/22 03:32) Lactated Ringers (Lr 1000 Ml Iv Solution (04/08/22 03:45) Ondansetron Injection (Zofran Injectio (04/08/22 03:45) Manual Differential (04/08/22 03:38) Dicyclomine Capsule (Bentyl Capsule) (04/08/22 04:45) Rx-Ondansetron Po (Rx-Zofran Po) (04/08/22 04:45) Medications Given in ED Current Medications Medications Dose Ordered Sig/Gurinder Route Start Time Stop Time Status Last Admin Dose Admin Ondansetron HCl 8 mg ONCE ONCE IVP 04/08/22 03:45 04/08/22 03:46 DC 04/08/22 03:42 8 MG Vital Signs/I&O 04/08/22 03:18 Temp 37.1 Pulse 123 Resp 16 B/P (MAP) 115/76 (89) Pulse Ox 100 O2 Delivery Room Air Progress Progress Note : Time: 04:46 Progress Note Patient seen and examined by me, 27-year-old with abdominal cramping, nausea vomiting and diarrhea. Evaluation today includes a physical exam, CBC, Chem-12. Pertinent physical exam findings mild diffuse abdominal tenderness without rebound or guarding. Heart is regular, lungs are clear she is slightly tachyc ardic in the 120s. Afebrile. Mildly dry oral mucosa. Patient is treated with a liter of lactated Ringer's and 8 mg of IV Zofran. After treatment she is reassessed and feeling much better with mild abdominal cramping that persists. Differential diagnosis based on history and physical exam, biliary colic, gastroenteritis. Labs reviewed, mild leukocytosis with a left shift. Chem-12 reviewed, within normal limits, CO2 normal, potassium normal. Patient does not have Eisenberg sign or specific point tenderness in the right upper quadrant. No rebound or involuntary guarding to suggest acute abdominal process that would require CT. Considered but not warranted at this time. No urinary complaints therefore urinalysis was not ordered. Not sexually active test was not ordered. Strong clinical suspicion for viral gastroenteritis secondary to possible food poisoning. Patient is counseled on bland diet for the next 24 hours. She is given a take-home pack of ondansetron for home use. Encouraged to drink plenty of fluids. She did tolerate sips of water prior to discharge. No diarrhea since coming back to the room. Return precautions provided. She verbalized understanding. All questions are sought and answered. She is improved at discharge. Departure Impression Primary Impression: Abdominal pain Qualified Codes: R10.84 - Generalized abdominal pain Additional Impression: Gastroenteritis Disposition: 01 HOME, SELF-CARE Condition: Improved Departure-Patient Inst. Decision time for Depature: 04:49 Referrals: [facility] (PCP/Family) Primary Care Physician Patient Instructions: Viral Gastroenteritis, Adult (DC) Add. Discharge Instructions: Drink plenty of clear liquids to stay well-hydrated. Start with a bland diet this morning, slowly advance as tolerated. You can use the ondansetron 1 every 8 hours as needed for nausea and vomiting. You can also take Imodium as long as there is no blood in your stool and you have no fever. Please follow packaging instructions. If you develop worsening abdominal pain with fever, persistent vomiting please return to the emergency room within 24 to 48 hours for reevaluation. Follow-up with your community health provider as needed Scripts No Active Prescriptions or Reported Meds Copy Copies To 1: SVEN TREJO KATHRYN M MD Apr 08, 2022 03:27
[2022-04-08] MEDS ORDERED: ONDANSETRON 4 MG/2 ML (SDV) Z0FRAN IVP ONE (03:45)
[2022-04-08] MEDS ORDERED: LACTATED RINGERS 1,000 ML IV SCH (03:45)
[2022-04-08 03:55] LABS: BASOPHILS % (AUTO) 0 % (0-10); EOSINOPHILS # (AUTO) 0.1 10^3/uL (0.0-0.3); EOSINOPHILS % (AUTO) 1 % (0-10); HEMATOCRIT 39 % (35-52); HEMOGLOBIN 13.2 g/dL (11.5-16.0); LYMPHOCYTES # (AUTO) 0.8 10^3/uL (1.0-4.0); LYMPHOCYTES % (AUTO) 5 % (12-44); MEAN CORPUSCULAR HEMOGLOBIN 30 pg (25-34); MEAN CORPUSCULAR HGB CONC 34 g/dL (32-36); MEAN CORPUSCULAR VOLUME 88 fL (80-99); MEAN PLATELET VOLUME 9.1 fL (9.0-12.2); MONOCYTES # (AUTO) 0.8 10^3/uL (0.0-1.0); MONOCYTES % (AUTO) 5 % (0-12); NEUTROPHILS # (AUTO) 13.2 10^3/uL (1.8-7.8); NEUTROPHILS % (AUTO) 88 % (42-75); PLATELET COUNT 292 10^3/uL (130-400); WHITE BLOOD COUNT 14.9 10^3/uL (4.3-11.0)
[2022-04-08 04:00] LABS: ALBUMIN 4.4 GM/DL (3.2-4.5)
[2022-04-08 04:02] LABS: CALCIUM 9.1 MG/DL (8.5-10.1)
[2022-04-08 04:03] LABS: TOTAL PROTEIN 7.5 GM/DL (6.4-8.2)
[2022-04-08 04:05] LABS: BILIRUBIN,TOTAL 0.6 MG/DL (0.1-1.0)
[2022-04-08 04:07] LABS: CREATININE SERUM 0.83 MG/DL (0.60-1.30)
[2022-04-08 04:18] LABS: EOSINOPHILS % (MANUAL) 1 %; LYMPHOCYTES % (MANUAL) 6 %; MONOCYTES % (MANUAL) 4 %; NEUTROPHILS % (MANUAL) 89 %; RBC MORPH NORMAL
[2022-04-08] MEDS ORDERED: DICYCLOMINE 10 MG (BENTYL) CAP PO STA (04:45)
[2022-04-08] MEDS ORDERED: RX-ONDANSETRON 4 MG ODT (ZOFRAN) PPK #4 PO STA (04:45)
[2022-04-08 05:00] VITALS: BP 112/79
== END 2022-04-08 05:02 | disposition home or self-care (01) ==
LOC: EDUNIT# 02:58 → ER 03:00
DX: K52.9 Noninfective gastroenteritis and colitis, unspecified (principal); Z28.310 Unvaccinated for COVID-19
CPT/HCPCS: 36415; 80053; 85007; 85027; 99283

== ENCOUNTER 2022-04-22 13:03 | Emergency (ER) | payer OTHER ==
[~2022-04-22] VITALS: Ht 170.2 cm; Wt 90.7 kg
[2022-04-22] MEDS ORDERED: LIDOCAINE 1% INJ 10 ML VIAL INJ ONE (13:30)
--- NOTE | 2022-04-22 13:34 | ED Integumentary General ---
General Chief Complaint: Skin/Wound Problems Stated Complaint: LEFT THUMB PAIN/SWOLLEN Source: patient Exam Limitations: no limitations (CRISTEL SAMSON) History of Present Illness Date Seen by Provider: Apr 22, 2022 Time Seen by Provider: 13:31 Initial Comments Patient is a 27-year-old female presents ED with a laceration to her left thumb. This occurred around 130 this morning. She states she was cutting watermelon while she was intoxicated. She has a superficial 1 cm laceration to the dorsum side of the left thumb. She report mild bleeding at that time. She applied direct pressure. Normal active range of motion. Up-to-date her tetanus within the past 2 years. She denies of any increasing pain, swelling or redness around the area. She has 2 other areas with superficial cuts with dried blood but the area is closed. (CRISTEL SAMSON) Allergies and Home Medications Allergies Coded Allergies: No Known Drug Allergies (Unverified , 02/14/22) Patient Home Medication List Home Medication List Reviewed: Yes (CRISTEL SAMSON) No Active Prescriptions or Reported Meds Review of Systems Review of Systems Constitutional: No chills, No diaphoresis EENTM: No ear pain, No blurred vision, No mouth pain, No mouth swelling, No throat pain Respiratory: No cough Cardiovascular: No chest pain Gastrointestinal: No abdominal pain, No diarrhea, No nausea, No vomiting Genitourinary: No decreased output, No discharge Musculoskeletal: No back pain Skin: change in color, other (Laceration to left thumb) (CRISTEL SAMSON) All Other Systems Reviewed Negative Unless Noted: Yes (CRISTEL SAMSON) Past Iislded-Umljza-Tunfzw Hx Patient Social History Tobacco Use?: No Use of E-Cig and/or Vaping dev: No Substance use?: No Alcohol Use?: Yes Alcohol Frequency: Once in a while Pt feels they are or have been: No (CRISTEL SAMSON) Immunizations Up To Date Tetanus Booster (TDap): Unknown PED Vaccines UTD: Yes First/Initial COVID19 Vaccinat: NA Second COVID19 Vaccination Luis: NA Third COVID19 Vaccination Date: NA (CRISTEL SAMSON) Seasonal Allergies Seasonal Allergies: Yes (CRISTEL SAMSON) Past Medical History Surgery/Hospitalization HX: KNEE SURGERY X2 Surgeries: Yes (RECONSTRUCTION ACL BILATERAL) Orthopedic Respiratory: No Cardiac: No Neurological: No Reproductive Disorders: No Genitourinary: No Gastrointestinal: No Musculoskeletal: No Endocrine: No HEENT: No Cancer: No Psychosocial: Yes Anxiety, PTSD, Depression Integumentary: No Blood Disorders: No (CRISTEL SAMSON) Physical Exam Vital Signs Vital Signs - First Documented 04/22/22 13:24 Pulse 91 Resp 16 B/P (MAP) 135/70 (91) Pulse Ox 98 O2 Delivery Room Air (FRACISCO,LOYD K DO) Vital Signs Capillary Refill : (CRISTEL SAMSON) General Appearance: WD/WN, no apparent distress HEENT: PERRL/EOMI, normal ENT inspection, TMs normal, pharynx normal Neck: non-tender, full range of motion, supple, normal inspection Cardiovascular: regular rate, rhythm, no edema, no gallop, no JVD Respiratory: chest non-tender, lungs clear, normal breath sounds, no respiratory distress, no accessory muscle use Gastrointestinal: normal bowel sounds, non tender, soft, no organomegaly Back: normal inspection, no CVA tenderness Extremities: other (Lacerations to the left thumb with normal active range of motion at the DIP, PIP CMC joint.) Neurologic/Psychiatric: information security consultant II-XII nml as tested, no motor/sensory deficits, alert, normal mood/affect Skin: other (1 cm laceration with adipose involvement to the left dorsum thumb. No active bleeding. 2 superficial lacerations to the left dorsum thumb. No nail involvement.) (CRISTEL SAMSON) Procedures/Interventions Wound Location: Upper Extremities (left thumb) Wound Length (cm): 1 Wound's Depth, Shape: superficial, sub Q Wound Explored: clean Irrigated w/ Saline (ccs): 100 Anesthesia: 1% Lidocaine Volume Anesthetic (ccs): 2 Suture: Ethlion Suture Size: 5-0 Number of Sutures: 2 Layer Closure?: 1 Sterile Dressing Applied?: Yes (CRISTEL SAMSON) Progress/Results/Core Measures Results/Orders Vital Signs/I&O 04/22/22 04/22/22 13:24 13:59 Pulse 91 91 Resp 16 16 B/P (MAP) 135/70 (91) 135/70 Pulse Ox 98 98 O2 Delivery Room Air Room Air (LOYD YAP DO) Departure Communication (PCP) Patient has 3 superficial lacerations to the left thumb. She has a laceration that is 1 cm in length that needs closure. The other 2 are very superficial and dried. she is up-to-date on her tetanus. Extensive irrigation prepped with iodine. 2 sutures were placed here in the ED. Normal active range of motion of the left thumb. Discussed immobilization to allow healing and avoid tearing of the sutures. Neosporin twice a day. No tendon or muscular involvement. Ne urovascular intact. Return back to ED in 10 days for suture removal. (CRISTEL SAMSON) Impression Primary Impression: Finger laceration Disposition: 01 HOME, SELF-CARE Condition: Stable Departure-Patient Inst. Decision time for Depature: 13:44 (CRISTEL SAMSON) Referrals: [facility] (PCP/Family) Primary Care Physician Patient Instructions: Laceration Repair With Stitches ED Add. Discharge Instructions: Remove sutures in 10 days. Neosporin twice a day keep area covered. Avoid range of motion to avoid tearing of the sutures. Return back if symptoms worsen such as increased redness, swelling. Keep the area clean All discharge instructions reviewed with patient and/or family. Voiced understanding. Scripts No Active Prescriptions or Reported Meds ATTENDING PHYSICIAN NOTE: I WAS PHYSICALLY PRESENT ER PHYSICIAN, BUT I WAS NOT INVOLVED IN ANY DECISION MAKING OR ANY CARE OF THIS PATIENT, AND I AM NOT COLLABORATING PHYSICIAN. (LOYD YAP DO) CRISTEL SAMSON Apr 22, 2022 13:34 LOYD YAP DO Apr 23, 2022 06:39
[2022-04-22 13:59] VITALS: BP 135/70
== END 2022-04-22 13:59 | disposition home or self-care (01) ==
LOC: EDUNIT# 13:03 → ER 13:05
DX: S61.012A Laceration without foreign body of left thumb without damage to nail, initial encounter (principal); W26.9XXA Contact with unspecified sharp object(s), initial encounter; Y93.G1 Activity, food preparation and clean up
CPT/HCPCS: 12001

== ENCOUNTER 2022-05-01 18:09 | Emergency (ER) | payer OTHER ==
[~2022-05-01] VITALS: Ht 170 cm; Wt 90.7 kg
[2022-05-01 18:35] VITALS: BP 119/79
== END 2022-05-01 18:34 | disposition home or self-care (01) ==
LOC: EDUNIT# 18:09 → ER 18:10
DX: Z48.02 Encounter for removal of sutures (principal)

== ENCOUNTER 2022-06-06 10:06 | Emergency (ER) | payer OTHER ==
[~2022-06-06] VITALS: Ht 170 cm; Wt 91.0 kg
[2022-06-06 12:10] VITALS: BP 129/78
--- NOTE | 2022-06-06 15:34 | Diagnostic Imaging Report ---
EXAMINATION: Right hand radiograph EXAM DATE: 06/06/2022 3:24 PM COMPARISON: None available. HISTORY: Right hand pain and swelling. TECHNIQUE: Three views FINDINGS: There is no acute fracture, dislocation, or destructive osseous process. The joint spaces are normal. The soft tissues are normal. IMPRESSION: 1. No acute osseous abnormality. Dictated by: Dictated on workstation # [id number]
--- NOTE | 2022-06-06 15:58 | ED Upper Extremity ---
General Stated Complaint: RT HAND INJ Source: patient Exam Limitations: no limitations (CRISTEL SAMSON) History of Present Illness Date Seen by Provider: June 06, 2022 Time Seen by Provider: 15:56 Initial Comments Patient is a 27-year-old female who presents ED with right hand pain. Patient states she punched a wall out of frustration last Sunday. She reports swelling and pain to the fourth and fifth knuckle. She states she has been taken anti- inflammatories. Difficulty with making a high lead yarder. Denies any wrist pain, numbness and tingling, obvious bone deformity (CRISTEL SAMSON) Allergies and Home Medications Allergies Coded Allergies: No Known Drug Allergies (Unverified , 02/14/22) Patient Home Medication List Home Medication List Reviewed: Yes (CRISTEL SAMSON) No Active Prescriptions or Reported Meds Review of Systems Constitutional: No chills, No diaphoresis EENTM: No ear pain, No blurred vision, No double vision Respiratory: No cough, No dyspnea on exertion Cardiovascular: No chest pain Gastrointestinal: No abdominal pain, No diarrhea, No nausea, No vomiting Genitourinary: No discharge Musculoskeletal: No back pain; joint pain, joint swelling Skin: No change in color, No change in hair/nails (CRISTEL SAMSON) All Other Systems Reviewed Negative Unless Noted: Yes (CRISTEL SAMSON) Past Vwljqdh-Bbuuup-Piscji Hx Immunizations Up To Date Tetanus Booster (TDap): Unknown PED Vaccines UTD: Yes First/Initial COVID19 Vaccinat: NA Second COVID19 Vaccination Luis: NA Third COVID19 Vaccination Date: NA (CRISTEL SAMSON) Seasonal Allergies Seasonal Allergies: Yes (CRISTEL SAMSON) Past Medical History Surgery/Hospitalization HX: KNEE SURGERY X2 Surgeries: Yes (RECONSTRUCTION ACL BILATERAL) Orthopedic Respiratory: No Cardiac: No Neurological: No Reproductive Disorders: No Genitourinary: No Gastrointestinal: No Musculoskeletal: No Endocrine: No HEENT: No Cancer: No Psychosocial: Yes Anxiety, PTSD, Depression Integumentary: No Blood Disorders: No (CRISTEL SAMSON) Physical Exam Vital Signs Vital Signs - First Documented 06/06/22 10:17 Temp 36.6 Pulse 89 Resp 20 B/P (MAP) 129/78 (95) Pulse Ox 99 O2 Delivery Room Air (REMI CHAMORRO MD) Vital Signs Capillary Refill : (CRISTEL SAMSON) Height, Weight, BMI Height: 5'8.00" Weight: 180lbs. oz. 81.534054cs; 31.00 BMI Method:Estimated General Appearance: WD/WN, no apparent distress HEENT: PERRL/EOMI, normal ENT inspection, TMs normal, pharynx normal Neck: non-tender, full range of motion, supple, normal inspection Cardiovascular: regular rate, rhythm, no edema, no gallop Respiratory: chest non-tender, lungs clear, normal breath sounds, no respiratory distress Gastrointestinal: normal bowel sounds, non tender Shoulder: normal inspection, non-tender Elbow/Forearm: normal inspection, non-tender, normal ROM, Right Wrist: Yes normal inspection, Yes non-tender, Yes normal ROM Hand: Right, soft tissue tenderness (Tenderness to palpate right fourth and fifth MCP joint. Normal active range of motion of the digits), swelling (CRISTEL SAMSON) Procedures/Interventions Suture Size: 5-0 (CRISTEL SAMSON) Departure Communication (PCP) X-ray negative for fracture. Likely hand sprain. Ice and anti-inflammatories. Orthopedic follow-up in 7 to 14 days. Return back to ED if anything worsens (CRISTEL SAMSON) Impression Primary Impression: Hand sprain Disposition: 01 HOME, SELF-CARE Condition: Stable Departure-Patient Inst. Decision time for Depature: 15:57 (CRISTEL SAMSON) Referrals: [facility] [place] (PCP/Family) Primary Care Physician JOSE DAVID LAYTON MD Patient Instructions: Sprain (DC) Scripts No Active Prescriptions or Reported Meds ATTENDING PHYSICIAN NOTE: I was physically present as attending physician in the emergency department during the care of this patient, but I was not directly involved in the decision making or delivery of care for this patient. (REMI CHAMORRO MD) CRISTEL SAMSON June 06, 2022 15:58 REMI CHAMORRO MD June 09, 2022 06:15
== END 2022-06-06 12:10 | disposition home or self-care (01) ==
LOC: ER 10:08 → EDUNIT# 12:24
DX: S63.91XA Sprain of unspecified part of right wrist and hand, initial encounter (principal); W22.01XA Walked into wall, initial encounter
CPT/HCPCS: 73130